=== PATIENT | female | born 1970 | race Caucasian/White ===

== ENCOUNTER 2024-10-13 14:17 | Emergency (ER) | payer SELFPAY ==
[2024-10-13 14:22] VITALS: BP 135/90
[2024-10-13 14:53] LABS: % Basophils 0.3 % (0-2); % Eosinophils 3.5 % (0-6); % Immature Granulocytes 0.4 % (0-0.5); % Lymphocytes 28.4 % (20.5-51.1); % Monocytes 5.2 % (1.7-9.3); % Neutrophils 62.2 % (42.2-75.2); Absolute Eosinophils 0.4 10^3/uL (0-0.7); Absolute Lymphocytes 2.9 10^3/uL (1.2-3.4); Absolute Monocytes 0.5 10^3/uL (0.1-0.6); Absolute Neutrophils 6.4 10^3/uL (1.4-6.5); Hematocrit 39.1 % (37.0-47.0); Hemoglobin 13.1 g/dL (12.0-16.0); Mean Corp Hgb Conc. 33.5 g/dL (33.0-37.0); Mean Corpuscular Hgb 29.7 pg (27.0-31.0); Mean Corpuscular Volume 88.7 fL (81.0-99.0); Mean Platelet Volume 10.7 fL (7.4-10.4); Nucleated Red Blood Cells % 0 %; Platelet Count 263 10^3/uL (130-400); Red Blood Cell Count 4.41 10^6/uL (4.20-5.40); White Blood Cell Count 10.4 10^3/uL (4.8-10.8)
[2024-10-13 15:09] LABS: HCG, Serum Qualitative Screen Negative
[2024-10-13 15:10] LABS: ALT (SGPT) 24 U/L (0-35); AST (SGOT) 24 U/L (14-36); Albumin 4.7 g/dl (3.5-5.0); Alkaline Phosphatase 83 U/L (38-126); Blood Urea Nitrogen 15 mg/dl (7-17); Calcium 9.6 mg/dl (8.4-10.2); Carbon Dioxide 23 mmol/L (22-30); Chloride 107 mmol/L (98-107); Glucose 126 mg/dl (70-99); Potassium 4.2 mmol/L (3.5-5.1); Sodium 138 mmol/L (135-145); Total Bilirubin 0.5 mg/dl (0.2-1.3); Total Protein 7.2 g/dl (6.3-8.2); eGFR > 60.00
[2024-10-13 15:13] LABS: Troponin I < 0.012 ng/ml
[2024-10-13 16:34] VITALS: BP 148/97
[2024-10-13 16:35] VITALS: BMI 27.7
[2024-10-13 17:00] VITALS: BP 155/99
--- NOTE | 2024-10-13 17:03 | ED.GENMED ---
History of Present Illness
General
Chief Complaint: Dizziness
Source: patient
Exam Limitations: none
Time Seen by Provider: 10/13/24 16:48
Nursing documentation reviewed up to this point in time: agreed with
History of Present Illness
History of Present Illness:
54-year-old female with a past medical history of hypertension, CAD status post stents who presents to the emergency department for evaluation of dizziness. Patient reports onset of symptoms 4 days ago and have been constant since that time. She
reports a severe room spinning sensation is much worse with positional changes�specifically she cites when sitting up from bed as well as when bending over to pick something up. She denies any lightheadedness or syncope. She reports that she has
had some mild associated pain in the left side of her neck but she says that this she thinks is more muscular. She says she did have a mild pain in her chest that seems to have resolved few days ago. She denies any other associated symptoms. She
has not had any headache. She denies any change in her vision or speech. Denies any focal weakness or numbness. She has not had any nausea or vomiting. Denies any recent URI symptoms or earache. She says she has never had similar symptoms in
the past.
Review of Systems
Review of Systems
All Other Systems: ROS reviewed and negative except as documented in HPI and ROS
Constitutional: Denies fever
EENT: Denies sore throat or runny nose
Respiratory: Denies cough or trouble breathing
Cardiac: Reports chest pain; Denies palpitations or syncope
ABD/GI: Denies abdominal pain, nausea or vomiting
: Denies flank pain
Musculoskeletal: Reports neck pain; Denies back pain
Neurological: Reports dizzy; Denies headache, weakness or numbness
Phy Exam
Physical Exam
Physical Exam:
General: Awake, alert, oriented x3; no acute distress
Head: Normocephalic, atraumatic
Eyes: Conjunctiva normal, EOMI, leftward nystagmus noted with positional changes ([place]-Hallpike)
Ears: TMs clear bilaterally, ear canals clear
Throat: Airway intact, handling secretions
Neck: Trachea midline, supple without meningismus, no cervical tenderness
Lungs: Clear to auscultation bilaterally, no wheezing, rales, rhonchi
Heart: Regular rate and rhythm, no murmurs, gallops, or rubs
Neuro: Cranial nerves intact 2 through 12, speech fluid without dysarthria or aphasia, no limb ataxia, motor and sensory intact in all extremities
Extremities: No edema in extremities, no calf tenderness, equal pulses in all extremities
Scores
Heart Failure Risk
Heart Failure Risk Score: Not Applicable
Heart Score for Chest Pain Patients
STEMI patient?: Not applicable
Withdrawal Assessment of Alcohol
Withdrawal Assessment Completed?: Not applicable
Course
Orders/Labs/Results
Orders:
Orders
10/13/24 14:18
Electrocardiogram (*1) Urgent
Reason for Study: Chest Pain
EKG- Treatment ONCE
Test Result ONCE
10/13/24 14:41
Complete Blood Count/With Diff Urgent
Comprehensive Metabolic Panel Urgent
HCG, Serum Qualitative Screen Urgent
Comment: Notify provider if positive test present
Troponin I Urgent
10/13/24 17:03
CT Head & Neck Angio W/wo IV Urgent
Comment:
Reason For Exam: dizziness, neck pain (left)
0.9% Sodium Chloride 500 ml [Nss] 500 ml IV BOLUS
Meclizine [Antivert] 25 mg PO NOW STA
Abnormal Lab Results
10/13/24
14:41
MPV 10.7 H fL
(7.4-10.4)
Glucose 126 H mg/dl
(70-99)
10/13/24 14:41
10/13/24 14:41
Vital Signs
Initial and Last Documented VS:
Initial Vital Signs
Temp Pulse Resp BP Pulse Ox
37.1 C 84 18 135/90 99
10/13/24 14:22 10/13/24 14:22 10/13/24 14:22 10/13/24 14:22 10/13/24 14:22
Last Documented Vital Signs
Temp Pulse Resp BP Pulse Ox
36.9 C 62 15 126/79 98
10/13/24 18:00 10/13/24 18:00 10/13/24 17:00 10/13/24 18:00 10/13/24 17:09
MDM/Problems Addressed
Differential Diagnosis Includes:
Vertigo: Peripheral vertigo (BPPV, labyrinthitis, M�ni�re's, eustachian tube dysfunction, etc) versus central vertigo (stroke, brain bleed, dissection, etc)
MDM/Problems Addressed:
54-year-old female presents to the emergency room for evaluation of positional vertigo for the past few days. She said she did have some transient chest pain that seems to resolved also has been dealing with some soreness in the left neck that she
thinks is muscular. No other associated signs or symptoms. Denies having had similar symptoms in the past. Her vital signs are normal here. Physical exam is as above�notable for leftward nystagmus on [place]-Hallpike. Labs sent in triage including
a CBC and a CMP showed no clinically significant abnormalities. Her EKG shows sinus rhythm with no acute ischemia; troponin is undetectable. Will plan to check CTA head and neck to rule out dissection given her report of neck pain with new onset
dizziness. Her history and exam however is most consistent with peripheral vertigo. Will plan to treat symptomatically. Will monitor closely reassess after the above.
CTA head and neck negative for any hemorrhage or dissection. 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 She does have significant paranasal sinus disease with opacification of the left maxillary sinus which could be
contributing to vertiginous symptoms. Clinical reassessment after meclizine symptoms have greatly improved. Suspect that this is peripheral vertigo. I provided patient a copy of her CT report to follow-up on incidental finding of aneurysm. Will
prescribe antibiotic for sinus disease. Prescribed meclizine as needed for symptoms. Stable for discharge. Patient comfortable this plan. All questions answered.
Chronic conditions affecting care: HTN
*Radiology
Radiology exam reviewed: radiology read reviewed
*Pulse Oximetry
SaO2: 98
Oxygen Mode of Delivery: Room air
Patient hypoxic: no (98%)
*EKG
Interpreted by ED Provider?: Yes
Heart Rate: 75
Rate: normal
Rhythm: sinus
Seaman: normal axis
Interval: normal interval
QRS Pattern: right bundle branch block (Incomplete)
Ischemia: no ischemia
*Critical Care Note
Total Time (30-74mins, 75-104mins- exclusive of procedures): Not Applicable
Data Reviewed
Source: patient
ED Attending Note
-
Portions of this chart may have been created with voice recognition software.� Occasional wrong word or��sound alike� substitutions may have occurred due to the inherent limitations of voice recognition software.
Discharge Plan
Departure
Patient Disposition: Home (Routine Discharge)
Date of Disposition: 10/13/24
Time of Disposition: 18:54
Patient with high blood pressure during this ER visit?: No
Discharge Problem:
Vertigo, Sinusitis
Instructions: Vertigo (a Type of Dizziness) (DC), Sinusitis in adults - ED discharge instructions
Prescriptions:
New
cefdinir 300 mg capsule
300 mg PO BID Qty: 14 0RF
meclizine 25 mg tablet
25 mg PO BID PRN (Reason: dizziness) Qty: 20 0RF
Referrals:
NONE,* [Family Provider, Internal Medicine]
Activity Restrictions/Additional Instructions:
Thank you for visiting the Emergency Department at [facility].
1. Please schedule a follow up appointment as directed. Call first thing tomorrow morning to make an appointment.
2. If indicated, please take your medications as instructed and indicated on discharge paperwork.
3. If any of your symptoms do not improve, or persist, or become more severe within 6-12 hours, please return to the emergency department for further care.
4. Please return to the emergency department if you develop a headache, neck pain/stiffness, fever greater than 100.4F, chest pain, shortness of breath, persistent nausea, vomiting, slurred speech, difficulty walking, numbness/tingling, weakness,
signs of infection or any other symptoms that are worrisome to you.
Please call [phone] if you have any questions.
Interventions
Interventions:
*Risk Screen - Suicide Last Done: 10/13/24 14:22
*General Assessment Last Done: 10/13/24 16:37
*Neglect/Abuse Screening Last Done: 10/13/24 14:22
*ED COVID-19 Vaccine History Last Done: 10/13/24 16:38
ED- Neurological Assessment Last Done: 10/13/24 16:38
ED Swallowing Screen Last Done: 10/13/24 16:38
Discharge Date and Time
Print Language: SLOVENIAN
[2024-10-13] MEDS: ANTIVERT 25 MG PO (17:13)
[2024-10-13] MEDS: NSS 500 IV (17:22)
[2024-10-13 18:00] VITALS: BP 126/79
== END 2024-10-13 19:15 | disposition home or self-care (01) ==
LOC: EMR 14:17
PROVIDERS: Emergency Medicine; EMERGENCY PHYSICIAN Emergency Medicine
DX: R42 Dizziness and giddiness (principal); M54.2 Cervicalgia; R07.89 Other chest pain; J01.90 Acute sinusitis, unspecified; I45.10 Unspecified right bundle-branch block; I10 Essential (primary) hypertension; I25.10 Atherosclerotic heart disease of native coronary artery without angina pectoris; I72.9 Aneurysm of unspecified site; I25.2 Old myocardial infarction; Z95.5 Presence of coronary angioplasty implant and graft
CPT/HCPCS: 99284; 70496; 70498; 80053; 84484; 84703; 85025; 93005; Q9967